=== PATIENT | male | born 1950 | race Caucasian/White ===

== ENCOUNTER 2017-07-05 19:40 | Emergency (ER) | payer SELFPAY ==
[~2017-07-05] VITALS: Ht 167.6 cm; Wt 53.2 kg
[2017-07-05 19:54] VITALS: Ht 167.6 cm; Wt 53.2 kg
[2017-07-05] MEDS ORDERED: ONDANSETRON 4 MG INJ IV STA (22:13)
[2017-07-05] MEDS ORDERED: SOD CHLORIDE 0.9% 1,000 ML IV STA (22:13)
[2017-07-05] MEDS ORDERED: morphine 4 MG/ML VIAL IV STA (22:13)
[2017-07-05 22:37] VITALS: TEMP 98.9
--- NOTE | 2017-07-05 22:53 | ERD ---
ER Documentation Chief Complaint Chief Complaint flank pain and hematuria x 1 week s/p prostate surgery HPI 67-year-old male who presents with bilateral flank pain as well as left lower pelvic pain. Most of the flank pain is on the left. He had prostate surgery a year ago, not a week ago. Urine flow has been good since then. He has had 2 urinary tract infection since that time the cause similar symptoms. He denies any fevers and chills. Does have some dysuria. Has an appoint with his urologist coming up next week ROS All systems reviewed and are negative except as per history of present illness. Medications Home Meds Active Scripts Hydrocodone/Acetaminophen (Lindsay 5-325 Tablet) 1 Each Tablet, 1 EACH PO Q6, #20 TAB Prov:TAHIRDOT DO 07/06/17 Ciprofloxacin Hcl* (Ciprofloxacin Hcl*) 500 Mg Tablet, 500 MG PO BID for 10 Days , TAB Prov:TAHIRDOT DO 07/06/17 Phenazopyridine Hcl* (Pyridium*) 100 Mg Tab, 100 MG PO TID Y for URINARY PAIN, # 8 TAB Prov:TAHIRDOT DO 07/06/17 Nitrofurantoin Monohyd Macrocr* (Macrobid*) 100 Mg Capsr, 100 MG PO BID for 5 Days, CAP Prov:TAHIRDOT DO 07/06/17 Reported Medications Ascorbic Acid* (Vitamin C*) 500 Mg Capsule.sa, 500 MG PO DAILY, CAP 07/06/17 Multivitamin W-Minerals/Lutein (CENTRUM SILVER ULTRA MEN'S TAB) 1 Each Tablet, 1 EACH PO, TAB 07/06/17 Vitamin B Complex* (Vitamin B Complex*) 1 Each Tablet, 1 TAB PO DAILY, TAB 07/06/17 Ibuprofen* (Ibuprofen*) 200 Mg Capsule, 200 MG PO Q6, CAP 07/06/17 Aspirin Ec (Aspir 81) 81 Mg Tablet.dr, 81 MG PO DAILY, #30 TAB 07/06/17 Amlodipine Besylate* (Norvasc*) 5 Mg Tablet, 5 MG PO DAILY, TAB 07/06/17 Lisinopril* (Lisinopril*) 40 Mg Tablet, 40 MG PO DAILY, #30 TAB 07/06/17 Metformin Hcl* (Metformin Hcl*) 500 Mg Tablet, 500 MG PO WITH BREAKFAST DINNE, # 30 TAB 07/06/17 Discontinued Scripts Ciprofloxacin Hcl* (Ciprofloxacin Hcl*) 500 Mg Tablet, 500 MG PO BID for 7 Days , TAB Prov:DOT HARO DO 07/06/17 Allergies Allergies: Coded Allergies: No Known Allergy (Unverified , 07/05/17) PMhx/Soc History of Surgery: Yes (Api, cholecystectomy, prostate) Anesthesia Reaction: No Hx Neurological Disorder: No Hx Respiratory Disorders: No Hx Cardiac Disorders: Yes (HTN) Hx Psychiatric Problems: No Hx Miscellaneous Medical Probl: Yes (DM) Hx Alcohol Use: No Hx Substance Use: No Hx Tobacco Use: No Smoking Status: Never smoker Physical Exam Vitals Vital Signs Date Time Temp Pulse Resp B/P Pulse Ox O2 Delivery O2 Flow Rate FiO2 07/05/17 22:37 98.9 80 16 151/71 100 07/05/17 19:54 98.9 96 18 120/58 99 Physical Exam Const: [] No distress Head: Atraumatic Eyes: Normal Conjunctiva ENT: Normal External Ears, Nose and Mouth. Abd: Soft, mild anterior left-sided pelvic pain above the inguinal area., non distended. Normal bowel sounds Skin: No petechiae or rashes Back: No midline or mild left flank tenderness to percussion. Ext: No cyanosis, or edema Neur: Awake and alert and oriented 3, no focal deficits Psych: Normal Mood and Affect Result Diagram: 07/05/17224307/05/172243 Results 24 hrs Laboratory Tests Test 07/05/17 22:44 07/05/17 23:00 White Blood Count 8.110^3/ul Red Blood Count 3.2410^6/ul Hemoglobin 10.7g/dl Hematocrit 29.1% Mean Corpuscular Volume 89.8fl Mean Corpuscular Hemoglobin 33.0pg Mean Corpuscular Hemoglobin Concent 36.8g/dl Red Cell Distribution Width 11.9% Platelet Count 05111^3/UL Mean Platelet Volume 9.7fl Neutrophils % 64.6% Lymphocytes % 22.9% Monocytes % 10.4% Eosinophils % 1.7% Basophils % 0.2% Nucleated Red Blood Cells % 0.0/100WBC Neutrophils # 5.210^3/ul Lymphocytes # 1.910^3/ul Monocytes # 0.810^3/ul Eosinophils # 0.110^3/ul Basophils # 0.010^3/ul Nucleated Red Blood Cells # 0.010^3/ul Sodium Level 136mmol/L Potassium Level 4.0mmol/L Chloride Level 102mmol/L Carbon Dioxide Level 22mmol/L Anion Gap 16 Blood Urea Nitrogen 32mg/dl Creatinine 1.55mg/dl Glucose Level 133mg/dl Calcium Level 9.7mg/dl Total Bilirubin 0.4mg/dl Direct Bilirubin 0.00mg/dl Indirect Bilirubin 0.4mg/dl Aspartate Amino Transf (AST/SGOT) 28IU/L Alanine Aminotransferase (ALT/SGPT) 38IU/L Alkaline Phosphatase 90IU/L Total Protein 8.6g/dl Albumin 4.3g/dl Globulin 4.30g/dl Albumin/Globulin Ratio 1.00 Lipase 536U/L Urine Color YELLOW Urine Clarity SLIGHTLY CLOUDY Urine pH 5.0 Urine Specific [place] 1.009 Urine Ketones NEGATIVEmg/dL Urine Nitrite NEGATIVEmg/dL Urine Bilirubin NEGATIVEmg/dL Urine Urobilinogen NEGATIVEmg/dL Urine Leukocyte Esterase 1+Sanjeev/ul Urine Microscopic RBC > 182/HPF Urine Microscopic WBC 81/HPF Urine Squamous Epithelial Cells FEW/HPF Urine Bacteria FEW/HPF Urine Hemoglobin 3+mg/dL Urine Glucose NEGATIVEmg/dL Urine Total Protein 1+mg/dl Current Medications Medications (Trade) Dose Ordered Sig/Megan Route PRN Reason Start Time Stop Time Status Last Admin Dose Admin Sodium Chloride (NS) 1,000 ml @ 1,000 mls/hr Q1H STAT IV 07/05/17 22:13 07/05/17 23:12 DC 07/05/17 22:36 Morphine Sulfate (morphine) 4 mg ONCE STAT IV 07/05/17 22:13 07/05/17 22:15 DC 07/05/17 22:36 Ondansetron HCl 4 mg 4 mg ONCE STAT IV 07/05/17 22:13 07/05/17 22:15 DC 07/05/17 22:36 Cefepime HCl (Maxipime 1gm/50 ml (Pmx)) 50 ml @ 100 mls/hr ONCE ONCE IVPB 07/06/17 01:00 07/06/17 01:29 DC 07/06/17 00:48 Procedures/MDM Pyelonephritis with no signs of sepsis or serious overwhelming infection. Patient was given a gram of cefepime in the emergency room as well as a liter of IV fluid morphine and Zofran. His pain is markedly decreased. He also has a normocytic anemia. He has no symptoms at this time. He has a follow-up appointment with his urologist coming up. Minor renal insufficiency as well. Patient does not want to stay in the hospital because he feels well. Going to discharge him with Cipro 10 days as well as Macrobid 5 days also giving him Pyridium and Lindsay. Strict return precautions for any fevers or increasing pain or weakness. Departure Diagnosis: Primary Impression: Pyelonephritis Additional Impressions: Hematuria Normocytic anemia Renal insufficiency Condition: Stable DOT HARO DO Jul 05, 2017 22:53
[2017-07-05 23:24] LABS: ALBUMIN 4.3 g/dl (3.3-4.9); BILIRUBIN,INDIRECT 0.4 mg/dl (0-1.1); BILIRUBIN,TOTAL 0.4 mg/dl (0.2-1.3); CALCIUM 9.7 mg/dl (8.4-10.2); CREATININE 1.55 mg/dl (0.61-1.24); TOTAL PROTEIN 8.6 g/dl (6.1-8.1)
[2017-07-05 23:28] LABS: BASOPHILS % 0.2 % (0.0-2.0); EOSINOPHILS # 0.1 10^3/ul (0.0-0.5); EOSINOPHILS % 1.7 % (0.0-7.0); HEMATOCRIT 29.1 % (42.0-52.0); HEMOGLOBIN 10.7 g/dl (14.0-18.0); LYMPHOCYTES # 1.9 10^3/ul (0.8-2.9); LYMPHOCYTES % 22.9 % (15.0-51.0); MEAN CORPUSCULAR HGB CONC 36.8 g/dl (32.0-37.0); MEAN CORPUSCULAR VOLUME 89.8 fl (82.0-101.0); MEAN PLATELET VOLUME 9.7 fl (7.4-10.4); MONOCYTE # 0.8 10^3/ul (0.3-0.9); MONOCYTES % 10.4 % (0.0-11.0); NEUTROPHIL # 5.2 10^3/ul (1.6-7.5); NEUTROPHILS % 64.6 % (39.0-77.0); PLATELET COUNT 203 10^3/UL (140-415); RED BLOOD COUNT 3.24 10^6/ul (4.70-6.10); RED CELL DISTRIBUTION WIDTH 11.9 % (11.5-14.5); WHITE BLOOD COUNT 8.1 10^3/ul (4.8-10.8)
[2017-07-05 23:34] LABS: ADD UMIC YES; UR ASCORBIC ACID NEGATIVE (NEGATIVE); UR BACTERIA FEW /HPF (NONE SEEN); UR BILIRUBIN (Dip) NEGATIVE (NEGATIVE); UR BLOOD (Dip) 3+ mg/dL (NEGATIVE); UR CLARITY SLIGHTLY CLOUDY (CLEAR); UR COLOR YELLOW (YELLOW); UR GLUCOSE (Dip) NEGATIVE (NEGATIVE); UR KETONES (Dip) NEGATIVE (NEGATIVE); UR LEUKOCYTE ESTERASE (Dip) 1+ Leu/ul (NEGATIVE); UR NITRITE (Dip) NEGATIVE (NEGATIVE); UR RBC > 182 /HPF (0-5); UR SPECIFIC GRAVITY (Dip) 1.009 (1.003-1.030); UR SQUAMOUS EPITHELIAL CELL FEW /HPF (FEW); UR TOTAL PROTEIN (Dip) 1+ mg/dl (NEGATIVE); UR UROBILINOGEN (Dip) NEGATIVE (NEGATIVE)
[2017-07-06] MEDS ORDERED: ASCO500C7 PO (00:38)
[2017-07-06] MEDS ORDERED: VIT1TABL46 PO (00:38)
[2017-07-06] MEDS ORDERED: IBUP200C PO (00:38)
[2017-07-06] MEDS ORDERED: METF500T4 PO (00:38)
[2017-07-06] MEDS ORDERED: MULT1TAB10 PO (00:38)
[2017-07-06] MEDS ORDERED: AMLO5TAB4 PO (00:38)
[2017-07-06] MEDS ORDERED: ASPI-535 PO (00:38)
[2017-07-06] MEDS ORDERED: LISI40TA9 PO (00:38)
[2017-07-06] MEDS ORDERED: CEFEPIME 1GM/50 ML (PMX) 50 ML IVPB ONE (01:00)
[2017-07-06] MEDS ORDERED: PHEN-537 PO (01:34)
[2017-07-06] MEDS ORDERED: CIPR500T4 PO ×2 (01:34→01:37)
[2017-07-06] MEDS ORDERED: NITR-58 PO (01:34)
[2017-07-06] MEDS ORDERED: HYDR-906 PO (01:40)
[2017-07-06 01:50] VITALS: BP 125/82; PULSE 78; RESP 18
== END 2017-07-06 01:50 | disposition home or self-care (01) ==
LOC: E/R 19:40
DX: N12 Tubulo-interstitial nephritis, not specified as acute or chronic (principal); D64.9 Anemia, unspecified; N28.9 Disorder of kidney and ureter, unspecified; I10 Essential (primary) hypertension; E11.9 Type 2 diabetes mellitus without complications; Z79.84 Long term (current) use of oral hypoglycemic drugs; Z79.82 Long term (current) use of aspirin
CPT/HCPCS: 36415; 80053; 81001; 83690; 85025; 87086; 96374; 96375; 99284; J0692; J2270; J2405; J7030